=== PATIENT | female | born 1990 | race Caucasian/White ===

== ENCOUNTER 2020-11-05 17:57 | Emergency (ER) | payer OTHER, SELFPAY ==
--- NOTE | ~2020-11-05 | XR_ITS ---
EXAMINATION: 1. RADIOGRAPHS LEFT ANKLE 2. RADIOGRAPHS LEFT FOOT CLINICAL INFORMATION: Pain after stepping off truck COMPARISON: Left foot x-rays 05/10/2016 TECHNIQUE: 3 views of the left ankle and 3 views of the left foot were obtained. FINDINGS: Visualized portion of the distal tibia and fibula demonstrate no fracture. Ankle mortise is well-maintained. There is asymmetric soft tissue swelling overlying the lateral malleolus. Small ankle joint effusion suspected. Bones of the midfoot are well aligned. No tarsal, metatarsal or phalangeal fracture. No focal soft tissue swelling of the foot. No radiopaque foreign body. Tiny plantar calcaneal enthesophytes. Bipartite medial sesamoid of the first toe. XR/XR ankle LT 2V IMPRESSION: 1. Asymmetric soft tissue swelling of the lateral ankle without fracture or dislocation. 2. Unremarkable radiographs of the left foot.
--- NOTE | ~2020-11-05 | XR_ITS ---
EXAMINATION: 1. RADIOGRAPHS LEFT ANKLE 2. RADIOGRAPHS LEFT FOOT CLINICAL INFORMATION: Pain after stepping off truck COMPARISON: Left foot x-rays 05/10/2016 TECHNIQUE: 3 views of the left ankle and 3 views of the left foot were obtained. FINDINGS: Visualized portion of the distal tibia and fibula demonstrate no fracture. Ankle mortise is well-maintained. There is asymmetric soft tissue swelling overlying the lateral malleolus. Small ankle joint effusion suspected. Bones of the midfoot are well aligned. No tarsal, metatarsal or phalangeal fracture. No focal soft tissue swelling of the foot. No radiopaque foreign body. Tiny plantar calcaneal enthesophytes. Bipartite medial sesamoid of the first toe. XR/XR foot LT 2V IMPRESSION: 1. Asymmetric soft tissue swelling of the lateral ankle without fracture or dislocation. 2. Unremarkable radiographs of the left foot.
[2020-11-05 18:00] VITALS: BP 112/75; PULSE 87; RESP 16; TEMP 36.7; O2SAT 99; BMI 37.8
[2020-11-05] MEDS: Ibuprofen 600 MG TABLET PO (18:28)
--- NOTE | 2020-11-05 19:03 | ED_ITS ---
HPI - Extremity Injury (Lower) General Chief Complaint: Extremity Injury, Lower Stated Complaint: ankle injury at work Time Seen by Provider: 11/05/20 18:15 Source: patient Mode of arrival: ambulatory Limitations: no limitations History of Present Illness HPI Narrative: Patient was at work and she stepped off a truck causing an inversion injury to her left ankle. Now has pain. Related Data Home Medications Medication Instructions Recorded Confirmed levonorgestrel 20 mcg/24 hours (6 INTRAUTERINE 07/22/20 07/22/20 yrs) 52 mg intrauterine device Previous Rx's Medication Instructions Recorded fluconazole 150 mg tablet 150 mg PO DAILY 1 Days #1 tab 07/22/20 terconazole 0.8 % vaginal cream 1 appful VAGINAL BEDTIME 3 Days 07/22/20 #20 g Allergies Allergy/AdvReac Type Severity Reaction Status Date / Time No Known Allergies Allergy Verified 07/22/20 17:52 [No Known Allergies*] Review of Systems Review of Systems: Yes all other systems are reviewed and are negative Constitutional: Constitutional: Reports no additional constitutional complaints, Denies body ache(s), Denies chills, Denies fever(s), Denies headache(s) and Denies weakness Eyes: Eyes: Reports no additional eye complaints and Denies change in vision ENT: Reports system reviewed and no additional complaints, except as documented, Denies dizziness, Denies headache(s), Denies nasal congestion, Denies nasal discharge and Denies neck pain Cardiovascular: Cardiovascular: Reports no additional cardiovascular complaints, Denies chest pain, Denies leg edema and Denies dyspnea Respiratory: Respiratory: Reports no additional respiratory complaints, Denies cough and Denies dyspnea Gastrointestinal: Gastrointestinal: Reports no additional gastrointestinal complaints, Denies abdominal pain, Denies diarrhea, Denies nausea and Denies vomiting Genitourinary: Genitourinary: Reports no additional female genitourinary complaints and Denies urinary incontinence Musculoskeletal: Musculoskeletal: Reports no additional musculoskeletal complaints, Denies back pain, Reports arthralgias, Reports joint swelling, Denies neck pain, Denies numbness and Denies tingling Integumentary/Breasts: Skin/Breast: Reports system reviewed and no additional complaints, except as docu and Denies rash Neurologic: Reports system reviewed and no additional complaints, except as documented, Denies Abnormal speech present, Denies dizziness, Denies headache(s), Denies numbness, Denies tingling and Denies weakness PMF Past Medical History Attestation statement: The following information was validated with the patient. Source: old records reviewed and nursing notes reviewed Medical History Obesity (BMI 30-39.9) Surgical History No pertinent past surgical history Family History Family History Father Diabetes Hypertension Mother No problems noted. Maternal Grandfather Throat cancer Maternal Aunt Intestinal cancer Social History Social History Alcohol intake: former Smoking Status: Never smoker Advance Directives: No Advance Directives Information Provided: No Patient : No Physical Exam Vital Signs: Vital Signs: Last Vital Signs Temp 98.0 F 11/05/20 18:00 Pulse 87 11/05/20 18:00 Resp 16 11/05/20 18:00 BP 112/75 11/05/20 18:00 Pulse Ox 99 11/05/20 18:00 Body Mass Index 37.8 Const: General: cooperative, healthy appearing, comfortable and no acute d istress Orientation/consciousness: patient oriented x3 Limitations: no limitations HENMT: Head: Yes normal to inspection Ears: hearing grossly normal bilaterally General nose exam: Normal external nose present Face and sinus: Yes normal facial exam Mouth: Normal oral and palatal mucosa present Throat: Yes posterior oropharynx normal Eyes: General: appearance normal, both eyes and all related structures Pupils: Equal, round and reactive pupils present Neck: Neck: Yes normal visual inspection Chest: Chest palpation & inspection: normal inspection of the chest Resp: Effort & Inspection: normal respiratory effort Auscultation: clear to auscultation bilaterally Cardio: Rate: regular rate Rhythm: regular rhythm Peripheral pulses: Peripheral pulses 2+ throughout GI: Inspection: Yes normal to inspection Palpation (GI): Soft to palpation and nontender Auscultation: normal bowel sounds Back/Spine/Pelvis: Thoracic/Lumbar Spine: thoracic and lumbar spine normal to inspection Skin: General skin exam: no rashes or lesions noted Neuro: General: patient oriented x3, no focal motor deficits and normal sensation to monofilament Cranial nerves: Yes Equal, round and reactive pupils present Cognition (Neuro): normal cognition Speech: No Abnormal speech present Gait exam (Neuro): Normal gait present Motor exam (neuro): 5/5 motor strength present throughout Extrem: Other: To the left lateral ankle there is mild swelling. No tenderness over the foot. Full range of motion. No warmth, erythema or deformity noted General: Yes normal to inspection Course Course Course Narrative: Inversion injury to the left ankle at work. Will check x- rays. 1904-x-ray shows no acute abnormality. Likely sprain. Patient placed in air splint and given crutches.. Reviewed worrisome signs and symptoms and when to return to the emergency department. Comfortable discharge home. Procedures Procedure Narrative Procedure Narrative: Air splint, crutches MDM - Extremity Injury (Lower) Medical Records Attestation: I reviewed the patient's medical records. Lab Data Attestation: I reviewed the patient's lab results. Imaging Data left ankle/foot xray: Attestation: I personally reviewed and interpreted this imaging study as follows: Radiologist's impression: IMPRESSION: 1. Asymmetric soft tissue swelling of the lateral ankle without fracture or dislocation. 2. Unremarkable radiographs of the left foot. Discharge Plan Discharge Clinical Impression: Ankle sprain and strain Patient Disposition: Home, Self-Care Instructions: Ankle Sprain (ED) Additional Instructions: Rest, ice, elevation Use splint for comfort and limit weight-bearing Motrin or tylenol for pain as needed Follow-up with [facility] [phone] Prescriptions: No Action terconazole 0.8 % cream 1 appful vaginal BEDTIME 3 Days Qty: 20 RF: 0 fluconazole 150 mg tablet 150 mg PO DAILY 1 Days Qty: 1 RF: 0 Mirena 20 mcg/24 hours (6 yrs) 52 mg intrauterine device intrauterine RF: 0 Referrals: Jose Roberto Rose MD [Primary Care Provider] - 2 days Stand Alone Forms: Work/School Release Interventions: ED Discharge Assessment Last Done: 11/05/20 19:15 Discharge Date/Time: 11/05/20 19:16
== END 2020-11-05 19:16 | disposition home or self-care (01) ==
PROVIDERS: Emergency Provider Internal Medicine; PCP Internal Medicine
DX: S93.402A Sprain of unspecified ligament of left ankle, initial encounter (principal); M25.572 Pain in left ankle and joints of left foot; Y33.XXXA Other specified events, undetermined intent, initial encounter; Y93.9 Activity, unspecified; Y92.9 Unspecified place or not applicable; Y99.9 Unspecified external cause status; Z79.899 Other long term (current) drug therapy
CPT/HCPCS: 29515; 73600; 73620; 99283

== ENCOUNTER 2021-09-29 17:46 | Emergency (ER) | payer OTHER, SELFPAY ==
--- NOTE | 2021-09-29 | ECG_ITS ---
Test Reason : CHEST PAIN Blood Pressure : / mmHG Vent. Rate : 114 BPM Atrial Rate : 114 BPM P-R Int : 156 ms QRS Dur : 084 ms QT Int : 316 ms P-R-T Axes : 034 061 032 degrees QTc Int : 435 ms Sinus tachycardia Otherwise normal ECG When compared with ECG of 05-MAY-2017 14:00, Vent. rate has increased BY 42 BPM Referred By: Generic ED Physician Electronically Signed By:GOGO GUSTAFSON
--- NOTE | ~2021-09-29 | XR_ITS ---
EXAMINATION: XR CHEST CLINICAL INFORMATION: Chest pain, fever. COMPARISON: CT chest dated from 07/17/2017 and chest radiograph dated from 05/05/2017. TECHNIQUE: 2 views of the chest were obtained. FINDINGS: Normal appearance of the cardiomediastinal silhouette. Low lung volumes with mild bronchovascular crowding but no discrete focal airspace opacities, pleural effusions or pneumothorax. No acute osseous abnormalities. The visualized upper abdomen is within normal limits. XR/XR chest 2V IMPRESSION: No acute cardiopulmonary findings.
[2021-09-29 18:10] VITALS: BP 128/72; PULSE 108; RESP 22; TEMP 38.6; O2SAT 98; BMI 39.7
[2021-09-29 19:46] LABS: MANUAL DIFF FLAG NO
[2021-09-29 19:47] LABS: Basophils Percent Auto 0.4 % (0-2); Hematocrit 40.5 % (37.0-47.0); Hemoglobin 13.7 g/dl (12.0-16.0); Imm Gran Abs Auto 0.01 X10*3/uL (0.00-0.03); Imm Gran Pct Auto 0.2 % (0.0-0.4); Lymphocytes Percent Auto 17.4 % (20-40); Mean Corpuscular HGB Conc 33.8 g/dl (31.0-35.0); Mean Corpuscular Hemoglobin 29.8 pg (27.0-33.0); Mean Corpuscular Volume 88.2 fL (80.0-98.0); Mean Platelet Volume 10.5 fL (9.4-12.3); Monocytes Percent Auto 17.2 % (2-11); Neutrophils Absolute Auto 3.6 x10*3/uL (2.0-8.3); Neutrophils Percent Auto 64.8 % (45-73); Platelet Count 196 X10*3/uL (160-400); Red Blood Count 4.59 X10*6/uL (4.20-5.50); Red Cell Distribution Width 12.2 % (11.0-16.0); White Blood Count 5.5 X10*3/uL (4.8-10.8)
--- NOTE | 2021-09-29 19:50 | ED_ITS ---
HPI - Chest Pain General Chief Complaint: Chest Pain Stated Complaint: sob,cough Time Seen by Provider: 09/29/21 19:50 Source: patient Mode of arrival: ambulatory Limitations: no limitations History of Present Illness HPI narrative: Patient with history of COVID about 2 1/2 weeks ago was getting better for last 2 days been having nasal congestion and shortness got worse today with clear rhinorrhea with fever and dry cough with chest tightness patient is not vaccinated against COVID or flu Related Data Home Medications Medication Instructions Recorded Confirmed levonorgestrel 20 mcg/24 hours (7 INTRAUTERINE 07/22/20 07/28/21 yrs) 52 mg intrauterine device (Mirena) Previous Rx's Medication Instructions Recorded benzonatate 200 mg capsule 200 mg PO TID PRN #20 cap 09/29/21 ibuprofen 600 mg tablet 600 mg PO Q6H PRN #20 tab 09/29/21 Allergies Allergy/AdvReac Type Severity Reaction Status Date / Time No Known Allergies Allergy Verified 07/28/21 17:22 [No Known Allergies*] Review of Systems Review of Systems: Yes all other systems are reviewed and are negative [facility] Past Medical History Medical History Obesity (BMI 30-39.9) Surgical History No pertinent past surgical history Family History Family History Father Diabetes Hypertension Mother No problems noted. Maternal Grandfather Throat cancer Maternal Aunt Intestinal cancer Social History Social History Housing: Apartment Alcohol intake: former Patient Tobacco Use Status: Former Tobacco user Second Hand Smoke Exposure: Yes Advance Directives: No service: No Current occupational status: employed Physical Exam Vital Signs: Vital Signs: Last Vital Signs Temp 102.7 F H 09/29/21 20:07 Pulse 94 09/29/21 20:07 Resp 18 09/29/21 20:07 BP 134/78 09/29/21 20:07 Pulse Ox 100 09/29/21 20:07 BMI result Body Mass Index 39.7 Appearance: Alert. Oriented X3. No acute distress. ENT: Pharynx normal. Oral Mucosa clear rhinorrhea Neck: Normal inspection. Neck supple. CVS: Normal heart rate and rhythm. Pulses normal. Respiratory: No respiratory distress. Equal air entry bilateral, no wheezing/rales/rhonchi Abdomen: Soft and nontender. Bowel sounds are present, no mass palpable, no CVA tenderness Skin: Skin warm and dry. Normal skin color. Normal skin turgor. Extremities: No lower extremity edema. No calf tenderness Neuro: Oriented X 3. No motor deficit. MDM - Chest Pain MDM Narrative Medical decision making narrative: Patient with influenza A chest x-ray negative discharge patient home on symptomatic treatment Lab Data Attestation: I reviewed the patient's lab results. Result diagrams: 09/29/21 19:41 09/29/21 19:41 Labs: Lab Results 09/29/21 09/29/21 09/29/21 Range/Units 19:41 19:41 19:41 WBC 5.5 (4.8-10.8) X10*3/uL RBC 4.59 (4.20-5.50) X10*6/uL Hgb 13.7 (12.0-16.0) g/dl Hct 40.5 (37.0-47.0) % MCV 88.2 (80.0-98.0) fL MCH 29.8 (27.0-33.0) pg MCHC 33.8 (31.0-35.0) g/dl RDW 12.2 (11.0-16.0) % Plt Count 196 (160-400) X10*3/uL MPV 10.5 (9.4-12.3) fL Immature Gran % (Auto) 0.2 (0.0-0.4) % Neut % (Auto) 64.8 (45-73) % Lymph % (Auto) 17.4 L (20-40) % [place] % (Auto) 17.2 H (2-11) % Eos % (Auto) 0.0 (0-4) % Baso % (Auto) 0.4 (0-2) % Lymph # (Auto) 1.0 L (1.2-4.9) X10*3/uL [place] # (Auto) 1.0 (0.1-1.2) X10*3/uL Eos # (Auto) 0.0 (0.0-0.4) X10*3/uL Baso # (Auto) 0.0 (0.0-0.2) X10*3/uL Abs Immat Gran (auto) 0.01 (0.00-0.03) X10*3/uL Absolute Neuts (auto) 3.6 (2.0-8.3) x10*3/uL Absolute Nucleated RBC 0.000 (0.0-0.012) X10*3/uL Nucleated RBC % (auto) 0.0 (0.0-0.2) /100WBC Sodium 135 (135-145) mmol/L Potassium 3.8 (3.3-5.1) mmol/L Chloride 103 (96-108) mmol/L Carbon Dioxide 25 (22-29) mmol/L Anion Gap 11 L (12-20) BUN 10 (9-16) mg/dL Creatinine 0.88 (0.5-1.4) mg/dL Estim Creat Clear Calc 111.4 Estimated GFR > 60 Random Glucose 87 (60-115) mg/dL Calcium 9.0 (8.4-10.2) mg/dL Total Bilirubin 0.3 (0.0-1.0) mg/dL AST 20 (5-31) U/L ALT 20 (0-31) U/L Alkaline Phosphatase 63 (39-117) U/L Troponin I High Sens < 3.5 (<3.5-17.0) ng/L Total Protein 7.5 (6.5-8.0) g/dL Albumin 4.3 (3.5-5.0) g/dL Urine Color Urine Appearance Urine pH (5.0-8.0) Ur Specific [place] (1.005-1.025) Urine Protein (NEG-TRACE) MG/DL Urine Glucose (UA) (NEG) MG/DL Urine Ketones (NEG) MG/DL Urine Blood (NEG) Urine Nitrite (NEG) Ur Leukocyte Esterase (NEG) Urine RBC (0) /HPF Urine WBC (0-4) /HPF Ur Squamous Epith Cells /LPF Urine Bacteria /LPF Urine Test (NEGATIVE) COVID-19 (ARVIND) (Negative) COVID-19 Clin Com Influenza Type A (BEAR) (Negative) Influenza Type B (BEAR) (Negative) Influenza A & B Note 09/29/21 09/29/21 09/29/21 Range/Units 20:10 20:10 20:20 WBC (4.8-10.8) X10*3/uL RBC (4.20-5.50) X10*6/uL Hgb (12.0-16.0) g/dl Hct (37.0-47.0) % MCV (80.0-98.0) fL MCH (27.0-33.0) pg MCHC (31.0-35.0) g/dl RDW (11.0-16.0) % Plt Count (160-400) X10*3/uL MPV (9.4-12.3) fL Immature Gran % (Auto) (0.0-0.4) % Neut % (Auto) (45-73) % Lymph % (Auto) (20-40) % [place] % (Auto) (2-11) % Eos % (Auto) (0-4) % Baso % (Auto) (0-2) % Lymph # (Auto) (1.2-4.9) X10*3/uL [place] # (Auto) (0.1-1.2) X10*3/uL Eos # (Auto) (0.0-0.4) X10*3/uL Baso # (Auto) (0.0-0.2) X10*3/uL Abs Immat Gran (auto) (0.00-0.03) X10*3/uL Absolute Neuts (auto) (2.0-8.3) x10*3/uL Absolute Nucleated RBC (0.0-0.012) X10*3/uL Nucleated RBC % (auto) (0.0-0.2) /100WBC Sodium (135-145) mmol/L Potassium (3.3-5.1) mmol/L Chloride (96-108) mmol/L Carbon Dioxide (22-29) mmol/L Anion Gap (12-20) BUN (9-16) mg/dL Creatinine (0.5-1.4) mg/dL Estim Creat Clear Calc Estimated GFR Random Glucose (60-115) mg/dL Calcium (8.4-10.2) mg/dL Total Bilirubin (0.0-1.0) mg/dL AST (5-31) U/L ALT (0-31) U/L Alkaline Phosphatase (39-117) U/L Troponin I High Sens (<3.5-17.0) ng/L Total Protein (6.5-8.0) g/dL Albumin (3.5-5.0) g/dL Urine Color YELLOW Urine Appearance CLEAR Urine pH 5.5 (5.0-8.0) Ur Specific [place] >= 1.030 H (1.005-1.025) Urine Protein NEG (NEG-TRACE) MG/DL Urine Glucose (UA) NEG (NEG) MG/DL Urine Ketones NEG (NEG) MG/DL Urine Blood NEG (NEG) Urine Nitrite NEG (NEG) Ur Leukocyte Esterase NEG (NEG) Urine RBC 0 (0) /HPF Urine WBC 0 (0-4) /HPF Ur Squamous Epith Cells 1+ /LPF Urine Bacteria 1+ /LPF Urine Test (NEGATIVE) COVID-19 (ARVIND) Negative (Negative) COVID-19 Clin Com See Note Influenza Type A (BEAR) Positive A (Negative) Influenza Type B (BEAR) Negative (Negative) Influenza A & B Note See Note 09/29/21 Range/Units 20:20 WBC (4.8-10.8) X10*3/uL RBC (4.20-5.50) X10*6/uL Hgb (12.0-16.0) g/dl Hct (37.0-47.0) % MCV (80.0-98.0) fL MCH (27.0-33.0) pg MCHC (31.0-35.0) g/dl RDW (11.0-16.0) % Plt Count (160-400) X10*3/uL MPV (9.4-12.3) fL Immature Gran % (Auto) (0.0-0.4) % Neut % (Auto) (45-73) % Lymph % (Auto) (20-40) % [place] % (Auto) (2-11) % Eos % (Auto) (0-4) % Baso % (Auto) (0-2) % Lymph # (Auto) (1.2-4.9) X10*3/uL [place] # (Auto) (0.1-1.2) X10*3/uL Eos # (Auto) (0.0-0.4) X10*3/uL Baso # (Auto) (0.0-0.2) X10*3/uL Abs Immat Gran (auto) (0.00-0.03) X10*3/uL Absolute Neuts (auto) (2.0-8.3) x10*3/uL Absolute Nucleated RBC (0.0-0.012) X10*3/uL Nucleated RBC % (auto) (0.0-0.2) /100WBC Sodium (135-145) mmol/L Potassium (3.3-5.1) mmol/L Chloride (96-108) mmol/L Carbon Dioxide (22-29) mmol/L Anion Gap (12-20) BUN (9-16) mg/dL Creatinine (0.5-1.4) mg/dL Estim Creat Clear Calc Estimated GFR Random Glucose (60-115) mg/dL Calcium (8.4-10.2) mg/dL Total Bilirubin (0.0-1.0) mg/dL AST (5-31) U/L ALT (0-31) U/L Alkaline Phosphatase (39-117) U/L Troponin I High Sens (<3.5-17.0) ng/L Total Protein (6.5-8.0) g/dL Albumin (3.5-5.0) g/dL Urine Color Urine Appearance Urine pH (5.0-8.0) Ur Specific [place] (1.005-1.025) Urine Protein (NEG-TRACE) MG/DL Urine Glucose (UA) (NEG) MG/DL Urine Ketones (NEG) MG/DL Urine Blood (NEG) Urine Nitrite (NEG) Ur Leukocyte Esterase (NEG) Urine RBC (0) /HPF Urine WBC (0-4) /HPF Ur Squamous Epith Cells /LPF Urine Bacteria /LPF Urine Test NEGATIVE (NEGATIVE) COVID-19 (ARVIND) (Negative) COVID-19 Clin Com Influenza Type A (BEAR) (Negative) Influenza Type B (BEAR) (Negative) Influenza A & B Note Discharge Plan Discharge Clinical Impression: Influenza A (H1N1) Patient Disposition: Home, Self-Care Instructions: Influenza (ED) Additional Instructions: Keep hydrated Tylenol/Motrin for fever cough drops as advised Follow with PCP if not better Albuterol inhaler 2 puffs as needed for severe shortness of breath Prescriptions: New benzonatate 200 mg capsule 200 mg PO TID PRN (Reason: cough) Qty: 20 0RF ibuprofen 600 mg tablet 600 mg PO Q6H PRN (Reason: pain) Qty: 20 0RF No Action Mirena 20 mcg/24 hours (6 yrs) 52 mg intrauterine device intrauterine 0RF
[2021-09-29 20:02] LABS: Alanine Aminotransferase 20 U/L (0-31); Albumin Level 4.3 g/dL (3.5-5.0); Alkaline Phosphatase 63 U/L (39-117); Anion Gap 11 (12-20); Aspartate Amino Transferase 20 U/L (5-31); Bilirubin Total 0.3 mg/dL (0.0-1.0); Blood Urea Nitrogen 10 mg/dL (9-16); Carbon Dioxide 25 mmol/L (22-29); Chloride 103 mmol/L (96-108); Creatinine Clr Calc Pharmacy 111.4; Estimated Glomerular Filt Rate > 60; Glucose Random 87 mg/dL (60-115); Potassium 3.8 mmol/L (3.3-5.1); Sodium 135 mmol/L (135-145); Total Protein 7.5 g/dL (6.5-8.0)
[2021-09-29 20:07] VITALS: BP 134/78; PULSE 94; RESP 18; TEMP 39.3; O2SAT 100
[2021-09-29] MEDS: Acetaminophen 325 MG TABLET 650 MG PO (20:19)
[2021-09-29] MEDS: Albuterol Sulfate 90 MCG 8 GM INHALER 4 PUFF INHALE (20:23)
[2021-09-29 20:27] LABS: Appearance Urine CLEAR; Color Urine YELLOW; Glucose Urine UA NEG (NEG); Leukocyte Esterase Urine NEG (NEG); Nitrite Urine NEG (NEG); PH 5.5 (5.0-8.0); Specific Gravity - Urine >= 1.030 (1.005-1.025); Urine Blood NEG (NEG); Urine Ketones NEG (NEG); Urine Protein NEG (NEG-TRACE)
[2021-09-29 20:28] LABS: Troponin-I High Sensitivity < 3.5 ng/L (<3.5-17.0)
[2021-09-29 20:28] LABS: UPreg QC Valid YES; Urine Pregnancy NEGATIVE (NEGATIVE)
[2021-09-29 20:31] LABS: IDNOW Serial# 08D9AD1C
[2021-09-29 20:32] LABS: COVID-19 Test Negative (Negative); Influenza A Positive (Negative); Influenza B2 Negative (Negative)
[2021-09-29 20:49] LABS: Bacteria Urine 1+ /LPF; RBC Urine 0 /HPF (0); Squamous Epithelial Cell Urine 1+ /LPF; WBC Urine 0 /HPF (0-4)
[2021-09-29] MEDS: Benzonatate 100 MG CAPSULE 200 MG PO (21:22)
[2021-09-29] MEDS: Ibuprofen 800 MG TABLET PO (21:22)
== END 2021-09-29 21:41 | disposition home or self-care (01) ==
PROVIDERS: Emergency Provider Internal Medicine
DX: J11.1 Influenza due to unidentified influenza virus with other respiratory manifestations (principal); Z20.822 Contact with and (suspected) exposure to COVID-19
CPT/HCPCS: 36415; 71046; 80053; 81001; 81025; 84484; 85025; 87502; 87635; 93005; 99284

== ENCOUNTER 2023-08-28 16:11 | Outpatient (AMB) | payer OTHER, SELFPAY ==
[2023-08-28 16:16] VITALS: BP 122/76; PULSE 69; O2SAT 99; BMI 40.5
--- NOTE | 2023-08-28 16:16 | MHC.PC.OV ---
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 Required: No Market Manager: Not Required per policy Accompanied by: Self / Same As Patient Allergies No Known Allergies [No Known Allergies*] Allergy (Verified 08/28/23 16:48) Medication List - Last Reconciled 08/28/23 by Jose Roberto Rose MD No Known Home Meds Tobacco use date assessed: 08/28/23 Dental Screening Dental Screen Date: 08/28/23 Did you have a dental visit in the last 12 months?: No Did you have a dental problem in the last 6 months where you did not have access to dental care?: Yes Was dental information given to patient?: Patient has dentist HPI Annual Exam HPI Details Patient comes in today for her annual physical examination - was last seen by me over 2 years ago on 07/28/2021 Patient states that she feels okay except for recurrent increased pain over her lower back for the past few weeks Relates that she would often have a hard time getting up when she is lying down due to her low back pain - often feels like her back is stuck She denies any history of back injury or trauma but 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 She had some labs ordered at her physical exam with Nataliya (one of our MINGLER OPERATOR) last year and was also referred to OB-Installation Supervisor but states that she never went for any lab or OB-Installation Supervisor appt as she lost her health insurance a few weeks later States that she now again has insurance coverage and would like to get a referral again to OB-Installation Supervisor as she would also like to have her IUD, which she's had since 2017, rechecked as well She denies any headaches or dizziness Denies any chest pains, no SOB No nausea/vomiting, no abdominal pain No change in bowel habits noted She denies any acute urinary symptoms PFSH Medical History Obesity (BMI 30-39.9) Surgical History No pertinent past surgical history Family History Father Diabetes Hypertension Multiple sclerosis Mother No problems noted. Maternal Grandfather Throat cancer Maternal Aunt Intestinal cancer Social History Housing: Apartment Alcohol intake: former Patient Tobacco Use Status: Former Tobacco user (would only smoke when went out, not consistently ) Quit Date: 1 year ago e-Cigarette/Vaping Use: Never Used Second Hand Smoke Exposure: Yes service: No Current occupational status: employed Cognitive needs: No Hearing needs: No Vision needs: No Questionnaire PHQ-9 Over the last 2 weeks, how often have you been bothered by any of the following problems? 1. Little interest or pleasure in doing things: not at all 2. Feeling down, depressed, or hopeless: not at all 3. Trouble falling or staying asleep, or sleeping too much: not at all 4. Feeling tired or having little energy: not at all 5. Poor appetite or overeating: not at all 6. Feeling bad about yourself - or that you are a failure or have let yourself or your family down: not at all 7. Trouble concentrating on things, such as reading the newspaper or watching television: not at all 8. Moving or speaking so slowly that other people could have noticed. Or the opposite - being so fidgety or restless that you have been moving around a lot more than usual: not at all 9. Thoughts that you would be better off or of hurting yourself in some way: not at all Total score: 0 Depression Screening Interpretation: Negative Depression Screening Done: Yes 53515 - PHQ-9 Billing: Yes Source: Developed by Drs. Chicho Aceves, Brittany Mckay, Eric Lyon and colleagues, with an educational jax from [employer]. Thrive Questionnaire Date Thrive assessed: 08/28/23 I am a: Patient What is your living situation today?: I have a steady place to live Within the past 12 months, did the food you bought not last and you didn't have the money to get more?: Never true Within the past 12 months, did you worry whether your food would run out before you got money to buy more?: Never true Do you have trouble paying for medicines?: No Do you have trouble getting transportation to medical appointments?: No Do you have trouble paying your heating and electricity bill?: No Do you have trouble taking care of your child, family member or friend?: No Do you have trouble with day-to-day activities such as bathing, preparing meals, shopping, managing finances, etc.?: No Are you currently unemployed and looking for a job?: No Are you interested in more education?: No Please select the resources that you would like help with: None Currently or been in a relationship where the following occur: no concerns reported THRIVE Score: 0 AUDIT C Alcohol Use Questionnaire (AUDIT-C) 1. How often do you have a drink containing alcohol?: Never 3. How often do you have six or more drinks on one occasion?: Never Total Score: 0 Score Reviewed/Action Taken: Yes MITCHEL-7 AMB Questionnaire MITCHEL-7 Date MITCHEL - 7 assessed: 08/28/23 Feeling nervous, anxious, or on edge: 0 = Not at all Not being able to stop or control worryin = Not at all Worrying too much about different things: 0 = Not at all Trouble relaxin = Not at all Being so restless that it is hard to sit still: 0 = Not at all Becoming easily annoyed or irritable: 0 = Not at all Feeling afraid as if something awful might happen: 0 = Not at all Total MITCHEL-7 score (0-4 normal; 5-9 mild; 10-14 moderate; 15-21 severe): 0 Source: Developed by Drs. Chicho Aceves, Brittany Mckay, Eric Lyon and colleagues, with an educational jax from [employer]. Review of Systems Const Denies chills, Denies fatigue, Denies fever(s), Denies headache(s) and Denies malaise Eyes Denies blurry vision, Denies change in vision, Denies irritation and Denies itchy eyes ENT Denies dysphagia, Denies dizziness, Denies otalgia, Denies headache(s), Denies nasal congestion, Denies neck pain, Denies odynophagia, Denies sinus pain and Denies sore throat Card Denies chest pain, Denies rapid heart rate, Denies irregular heart rhythm, Denies palpitations and Denies dyspnea Resp Denies chest congestion, Denies cough, Denies dyspnea and Denies wheezing GI Denies abdominal pain, Denies bloating, Denies constipation, Denies dysphagia, Denies heartburn, Denies diarrhea, Denies nausea, Denies odynophagia and Denies vomiting Denies hematuria, Denies urinary frequency, Denies dysuria, Denies urinary incontinence and Denies urinary urgency Musc Reports back pain (increased pain over the lower back), Denies arthralgias, Denies joint swelling, Denies muscle weakness and Denies neck pain Skin/Breast Denies breast pain, Denies breast mass, Denies change in pigmentation, Denies lesions, Denies rash and Denies unusual bruising Neuro Denies dizziness, Denies headache(s) and Denies paresthesias Psych Denies anxiety and Denies depression Endo Denies fatigue and Denies palpitations Braden/Lymph Denies easy bruising Aller/Immun Denies itchy eyes and Denies wheezing Physical exam (Primary Care) Vital Signs: Last Vital Signs Pulse 69 08/28/23 16:16 BP 122/76 08/28/23 16:16 Pulse Ox 99 08/28/23 16:16 Oxygen Delivery Method Room Air 08/28/23 16:16 BMI result Body Mass Index 40.5 Tobacco/Smoking Status: Tobacco use Status Tobacco use date assessed 08/28/23 08/28/23 16:21 Patient Tobacco Use Status Former Tobacco user (would 08/28/23 16:21 only smoke when went out, not consistently ) e-Cigarette/Vaping Use Never Used 08/28/23 16:21 PHQ-9: PHQ-9 Score PHQ-9: Total score 0 08/28/23 16:21 Depression Screening Interpretation: Negative Thrive Assessment: Date of Thrive Assessment Date Thrive assessed 08/28/23 08/28/23 16:21 Currently or been in a relationship where the following occur: no concerns reported Const General: no acute distress, alert and awake Orientation/consciousness: patient oriented x3 HENMT Head: Yes normocephalic and Yes atraumatic Ears: external ears normal, TM's normal bilaterally and EAC's normal General nose exam: No nasal discharge present Face and sinus: Yes normal facial exam and Yes sinuses nontender Teeth and gingiva: dentition normal Throat: Yes posterior oropharynx normal and Yes tonsils normal (no TP congestion) Eyes Eyelids: Yes eyelids normal Conjunctivae: conjunctivae normal Pupils: Equal, round and reactive pupils present EOM: EOMs intact bilaterally Neck Neck: Yes no lymphadenopathy and Yes supple Thyroid: Thyroid normal Resp Auscultation: clear to auscultation bilaterally, no rales and no wheezes Cardio Rate: regular rate Rhythm: regular rhythm Heart sounds: no murmurs GI Palpation (GI): Soft to palpation, nontender and No hepatosplenomegaly present Auscultation: normal bowel sounds General: Yes no CVA tenderness Back/Spine/Pelvis Back: no CVA tenderness Thoracic/Lumbar Spine: paraspinal muscle tenderness bilaterally in the mid lumbar and in the lower lumbar, No thoracic spinal tenderness and No lumbar spinal tenderness Skin Lesions: no lesions Rashes: no rashes Neuro General: patient oriented x3, moves all extremities, no focal motor deficits and CN's II-XI intact bilaterally Cranial nerves: Yes Equal, round and reactive pupils present Cognition (Neuro): normal cognition Gait exam (Neuro): Normal gait present Extrem General: Yes no clubbing, cyanosis or edema Assessment and Plan Assessment & Plan (1) Annual physical exam: Code(s): Z00.00 - Encounter for general adult medical examination without abnormal findings Plan: Check labs (2) Low back pain: Code(s): M54.50 - Low back pain, unspecified Qualifiers: Chronicity: unspecified Back pain laterality: bilateral Sciatica presence: without sciatica Qualified Code(s): M54.50 - Low back pain, unspecified Plan: Thoracic and lumbar spine x-rays done back in 2019 came out normal Will send patient for repeat lumbar spine x-rays for further evaluation Reinforced activity and weight-lifting restrictions for now to avoid aggravating her lower back symptoms Patient is advised that if her lumbar spine x-rays come back normal again, will then consider referring her to physical therapy for further evaluation and management (3) Obesity (BMI 30-39.9): Code(s): E66.9 - Obesity, unspecified Plan: Reinforced diet/exercise as tolerated/lose weight (4) Cervical cancer screening: Code(s): Z12.4 - Encounter for screening for malignant neoplasm of cervix Plan: [facility] and [facility]necologic exam She also has an IUD that she's had since 2017 and she would like to have this checked out as well States that she was not able to go last year as she lost her health insurance a few weeks after her physical exam then Plan Follow up in 6 months Orders: Orders Comprehensive Cantil. Panel Fast Today E78.00 - Pure hypercholesterolemia, unspecified, Z00.00 - Encounter for general adult medical examination without abnormal findings Lipid Panel Today E78.00 - Pure hypercholesterolemia, unspecified, Z00.00 - Encounter for general adult medical examination without abnormal findings TSH reflex Free T4 Today E78.00 - Pure hypercholesterolemia, unspecified, Z00.00 - Encounter for general adult medical examination without abnormal findings XR lumbar spine 2-3V Today M54.50 - Low back pain, unspecified Complete Blood Count Auto Diff Today D64.9 - Anemia, unspecified, Z00.00 - Encounter for general adult medical examination without abnormal findings UA CC w/rflx Micro + Cult Today R30.0 - Dysuria, Z00.00 - Encounter for general adult medical examination without abnormal findings Vitamin D 25-OH Total Today E55.9 - Vitamin D deficiency, unspecified, Z00.00 - Encounter for general adult medical examination without abnormal findings Referrals MASK INSPECTOR Referral Z12.4 - Encounter for screening for malignant neoplasm of cervix Coding Level of Care Code Est Pt Prev Care 18-39y([id number]) Diagnoses Annual physical exam Z00.00 Bilateral low back pain without sciatica, unspecified chronicity M54.50 Chronicity: unspecified Back pain laterality: bilateral Sciatica presence: without sciatica Obesity (BMI 30-39.9) E66.9 Cervical cancer screening Z12.4
== END 2023-08-28 16:59 | disposition home or self-care (01) ==
PROVIDERS: PCP Internal Medicine; Visit Provider Internal Medicine
DX: Z00.00 Encounter for general adult medical examination without abnormal findings (principal); E66.9 Obesity, unspecified; Z68.41 Body mass index [BMI] 40.0-44.9, adult; M54.50 Low back pain, unspecified; Z83.3 Family history of diabetes mellitus
CPT/HCPCS: 99395

== ENCOUNTER 2023-10-05 14:46 | Outpatient (REF) | payer OTHER, SELFPAY ==
[2023-10-06 12:15] LABS: CT PCR DETECTED (Not Detect.); NG PCR NOT DETECTED (Not Detect.)
[2023-10-06 14:01] LABS: BV Int Neg Control Negative (Negative); BV Int Pos Control Positive (Positive)
[2023-10-12 04:34] LABS: HPV mRNA E6/E7 rflx Not Detected (Not Detected)
== END 2023-10-05 14:47 | disposition home or self-care (01) ==
LOC: HO.LAB 14:46
PROVIDERS: Visit Provider Advanced Practice Midwife
DX: Z01.419 Encounter for gynecological examination (general) (routine) without abnormal findings (principal); Z11.51 Encounter for screening for human papillomavirus (HPV); Z20.2 Contact with and (suspected) exposure to infections with a predominantly sexual mode of transmission; Z97.5 Presence of (intrauterine) contraceptive device; E66.01 Morbid (severe) obesity due to excess calories
CPT/HCPCS: 0353U; 81025; 87480; 87510; 87624; 87660; 88142; 99385

== ENCOUNTER 2023-10-05 14:46 | Outpatient (AMB) | payer OTHER, SELFPAY ==
[2023-10-05 14:57] VITALS: BP 128/70; BMI 41.9
--- NOTE | 2023-10-05 14:57 | MHC.OFFVIS ---
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 She also likes how it helped with her heavy periods. Her periods have returned though they are not entirely regular sometimes she bleeds for a day or 2 and then it stops and then it starts again. She is sexually active but not too much she is busy trying to get healthier and she has a house and she is fixing it up. 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 She is interested in childbearing but wants to get things together 1st. She has started a diet in the last week and finds that she does better when she eats small regular meals and is tired starting to see some success with doing that and making healthier choices with her eating as well. She saw her primary care provider somewhat recently and he ordered a lot of fasting blood work for her but she is thought the follow-up visit was in January and she did not really need to do them until then but I recommend she get them done sooner so that if there is something to work on with elevated blood sugar cholesterol then she will be able to get started sooner. It would be interested in full STI testing and I will add it to her blood work so she can get that done at the same time. [facility] Medical History Obesity (BMI 30-39.9) Surgical History No pertinent past surgical history Family History Father Diabetes Hypertension Multiple sclerosis Mother No problems noted. Maternal Grandfather Throat cancer Maternal Aunt Intestinal cancer Social History Housing: Apartment Alcohol intake: former Patient Tobacco Use Status: Former Tobacco user Quit Date: 1 year ago e-Cigarette/Vaping Use: Never Used Second Hand Smoke Exposure: Yes service: No Current occupational status: employed Cognitive needs: No Hearing needs: No Vision needs: No Female Reproductive History Menstrual Age of Menarche: 15 Duration of menses: other control method: progestin IUCD Total pregnancies: 0 Full term: 0 History of abnormal pap smear: No (previous pap neg,2017) Physical Exam Vital Signs: Last Vital Signs BP 128/70 10/05/23 14:57 BMI result Body Mass Index 41.9 Const General: healthy appearing, comfortable, no acute distress, well developed and alert Nutritional Appearance: average body habitus Orientation/consciousness: patient oriented x3 Limitations: no limitations HEENT Head: Yes normocephalic Neck Neck: Yes normal visual inspection Chest Chest palpation & inspection: normal inspection of the chest Breast/axilla inspection: normal inspection of the breasts and normal inspection of the axillae Breast/axilla palpation: normal palpation of the breasts and normal palpation of the axillae Resp Effort & Inspection: normal respiratory effort GI Inspection: Yes normal to inspection, No Abdominal wall edema and No distended Palpation (GI): Soft to palpation and nontender Other: Normal speculum exam vagina pink and moist normal mucus cervix nulliparous pink smooth with a Mirena string easily visible in the os with a clear gel like mucus in the os consistent with normal and Mirena presence. Uterus small midposition nontender adnexa nontender good tone with Kegel General: Yes bladder normal to palpation External Female Exam: normal external appearance and normal appearance of the urethra Speculum Exam - Vagina: normal appearance of the vagina, normal palpation and normal vaginal discharge Speculum Exam - Cervix: normal appearance of the cervix, normal palpation and nontender Bimanual exam- vagina & uterus: normal bimanual exam, normal palpation, uterine size normal, bladder normal to palpation, consistency normal, normal palpation, uterine mobility normal, uterine shape normal, No Cervical tenderness present, non-tender and no cervical motion tenderness Bimanual Exam- Adnexa, other: normal adnexae, no masses, normal and No adnexal tenderness Neuro General: patient oriented x3 Results AMB Test Urine AMB Test Urine Negative Last Edit by Roderick Call CMA on 10/05/23 16:12 Results Reviewed Results Reviewed: test done here today is negative. Assessment & Plan Assessment & Plan (1) Cervical cancer screening: Comment: pap done 10/05/23 Code(s): Z12.4 - Encounter for screening for malignant neoplasm of cervix (2) Well woman exam with routine gynecological exam: Code(s): Z01.419 - Encounter for gynecological examination (general) (routine) without abnormal findings (3) Presence of 52 mg levonorgestrel-releasing intrauterine device (IUD): Comment: Patient had Mirena placed for control 12/01/2016.(by Dr. Almeida, note found in [facility]). Periods have become more frequent and irregular in last couple of years. I recommend to patient that she use condoms for primary method of control until this is replaced with her next menses. 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 She also likes how it helped with her heavy periods. Her periods have returned though they are not entirely regular sometimes she bleeds for a day or 2 and then it stops and then it starts again. She is sexually active but not too much she is busy trying to get healthier and she has a house and she is fixing it up. 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 She is interested in childbearing but wants to get things together 1st. She has started a diet in the last week and finds that she does better when she eats small regular meals and is tired starting to see some success with doing that and making healthier choices with her eating as well. She saw her primary care provider somewhat recently and he ordered a lot of fasting blood work for her but she is thought the follow-up visit was in January and she did not really need to do them until then but I recommend she get them done sooner so that if there is something to work on with elevated blood sugar cholesterol then she will be able to get started sooner. It would be interested in full STI testing and I will add it to her blood work so she can get that done at the same time. We are going to do a test today just to rule out because of her regular menses It would be best to replace her Mirena IU S on 1 of the 1st heavy days of her period. I reviewed why because it will ensure that she has a more favorable bleeding pattern afterwards and also that it is easier to insert at that time we will plan for removal and insertion on the same day in the meantime I recommend she use condoms from here going forward. Reviewed also her efforts to lose weight and encouraged her to keep going in that process as that would be helpful to lose the weight before considering in the future. Orders: Orders Pap Smear Today Z01.419 - Encounter for gynecological examination (general) (routine) without abnormal findings Hepatitis B Surface Antigen Today E66.9 - Obesity, unspecified, Z01.419 - Encounter for gynecological examination (general) (routine) without abnormal findings, Z11.3 - Encounter for screening for infections with a predominantly sexual mode of transmission, Z12.4 - Encounter for screening for malignant neoplasm of cervix Syphilis Screen Today E66.9 - Obesity, unspecified, Z01.419 - Encounter for gynecological examination (general) (routine) without abnormal findings, Z11.3 - Encounter for screening for infections with a predominantly sexual mode of transmission, Z12.4 - Encounter for screening for malignant neoplasm of cervix AMB HCG Urine Test Today Z32.02 - Encounter for test, result negative CT NG by PCR Today Z01.419 - Encounter for gynecological examination (general) (routine) without abnormal findings Bacterial Vaginosis Panel Today Z20.2 - Contact with and (suspected) exposure to infections with a predominantly sexual mode of transmission Hepatitis C Antibody Today E66.9 - Obesity, unspecified, Z01.419 - Encounter for gynecological examination (general) (routine) without abnormal findings, Z11.3 - Encounter for screening for infections with a predominantly sexual mode of transmission, Z12.4 - Encounter for screening for malignant neoplasm of cervix HIV Ab/Ag Today E66.9 - Obesity, unspecified, Z01.419 - Encounter for gynecological examination (general) (routine) without abnormal findings, Z11.3 - Encounter for screening for infections with a predominantly sexual mode of transmission, Z12.4 - Encounter for screening for malignant neoplasm of cervix Coding Level of Care Code New Prev Care 18-39yr([id number] Diagnoses Cervical cancer screening Z12.4 Well woman exam with routine gynecological exam Z01.419 Presence of 52 mg levonorgestrel-releasing intrauterine device (IUD) Z97.5 Obesity, morbid, BMI 40.0-49.9 E66.01
== END 2023-10-05 16:09 | disposition home or self-care (01) ==
LOC: HO.HWSM 14:46
PROVIDERS: Visit Provider Advanced Practice Midwife
DX: Z12.4 Encounter for screening for malignant neoplasm of cervix (principal); Z01.419 Encounter for gynecological examination (general) (routine) without abnormal findings; Z97.5 Presence of (intrauterine) contraceptive device; E66.01 Morbid (severe) obesity due to excess calories; Z32.02 Encounter for pregnancy test, result negative
CPT/HCPCS: 99385

== ENCOUNTER 2023-10-10 09:19 | Outpatient (REF) | payer OTHER, SELFPAY ==
--- NOTE | ~2023-10-10 | XR_ITS ---
EXAMINATION: XR LUMBOSACRAL SPINE CLINICAL INFORMATION: Low back pain. COMPARISON: Lumbar spine 03/15/2019. TECHNIQUE: Three views of the lumbosacral spine. FINDINGS: IUD redemonstrated in the pelvis. Mild degenerative changes in the bilateral sacroiliac joints and right hip. Slight leftward curvature of the lumbar spine. Mild facet arthritis in the lower lumbar spine. Lumbar vertebral body heights are preserved. Mild loss of disc space height with degenerative changes at L5-S1. XR/XR lumbar spine 2-3V IMPRESSION: Mild degenerative disc disease at L5-S1.
[2023-10-10 12:27] LABS: Syphilis Screen Nonreactive (Nonreactive)
[2023-10-10 12:29] LABS: HBsAGNum1 0.31 S/CO (0.00-0.99); HIV AB/AG Nonreactive (Nonreactive); HIV Num 1 0.04 S/CO (0.00-0.99); Hepatitis B Surface Antigen Negative (Negative); ~HepC Num1 0.21 S/CO (0.00-0.79); ~Hepatitis C Antibody Nonreactive (Nonreactive)
== END 2023-10-10 09:20 | disposition home or self-care (01) ==
LOC: HO.XRAY 09:19
PROVIDERS: Advanced Practice Midwife; PCP Internal Medicine; Visit Provider Internal Medicine Gastroenterology
DX: Z11.3 Encounter for screening for infections with a predominantly sexual mode of transmission (principal); E66.9 Obesity, unspecified; M54.50 Low back pain, unspecified
CPT/HCPCS: 36415; 72100; 86780; 86803; 87340; 87389

== ENCOUNTER → 2025-06-05 11:29 | Outpatient (BNVA) | payer SELFPAY | PROVIDERS: PCP Internal Medicine; Visit Provider Physician Assistant Medical | DX: Z02.79 Encounter for issue of other medical certificate (principal) ==